=== PATIENT | female | born 1950 ===

== ENCOUNTER 2020-10-13 05:50 | Day surgery (SDC) | payer OTHER ==
[~2020-10-13 05:50] MED LIST: CANDESARTAN CILE8 MG PO; CLONAZEPAM0.5 MG PO; D3 + K2 DOTS 11 EACH PO; FOSAMAX70 MG PO; HUMULIN N100 UNIT/2; METFORMIN HCL1000 M2 PO; PROZAC10 M1 PO
[2020-10-13] MEDS ORDERED: MACROBID 100 M100 MG PO (10:35)
== END 2020-10-13 13:20 | disposition home or self-care (01) ==
LOC: CIR.AMB 05:50
PROVIDERS: ATTEND Obstetrics & Gynecology Gynecology
DX: N81.11 Cystocele, midline (principal); Z20.822 Contact with and (suspected) exposure to COVID-19